=== PATIENT | female | born 1990 | race Caucasian/White ===

== ENCOUNTER 2016-11-27 09:00 | Emergency (ER) | payer MEDICAID, OTHER ==
[~2016-11-27] VITALS: Ht 167.6 cm; Wt 96.0 kg
[~2016-11-27 09:00] MED LIST: NO MEDS
[2016-11-27 09:02] VITALS: Ht 167.6 cm; Wt 96.0 kg
[2016-11-27] MEDS ORDERED: LORA10TA3 PO (09:41)
[2016-11-27] MEDS ORDERED: ACET500C5 PO (09:41)
--- NOTE | 2016-11-27 09:47 | ERD ---
ER Documentation Chief Complaint Date/Time DATE: 11/27/16 TIME: 09:46 Chief Complaint pt bib self with c/o cough and runny nose since yesterday HPI 26-year-old female A1 currently approximately 7 weeks presents with cough, runny nose, congestion and left-sided ear fullness beginning yesterday. Patient reports clear rhinorrhea, dry cough. She denies apnea, cyanosis, vomiting, diarrhea. She denies pelvic pain, abdominal pain, vaginal bleeding. ROS All systems reviewed and are negative except as per history of present illness. Medications Home Meds Active Scripts Loratadine* (Loratadine*) 10 Mg Tablet, 10 MG PO DAILY, #10 TAB Prov:TORRI COLON PA-C 11/27/16 Acetaminophen* (Tylophen*) 500 Mg Capsule, 1 CAP PO Q6H Y for PAIN AND OR ELEVATED TEMP, #20 CAP Prov:TORRI COLON PA-C 11/27/16 Reported Medications [No Meds] No Conflict Check 06/09/10 [None] No Conflict Check 06/07/10 Allergies Allergies: Coded Allergies: No Known Allergies (Verified Allergy, Mild, 06/09/10) Uncoded Allergies: SEAFOOD (Allergy, Intermediate, RASH AROUND MOUTH, 04/03/11) PMhx/Soc History of Surgery: No Anesthesia Reaction: No Hx Neurological Disorder: No Hx Respiratory Disorders: No Hx Cardiac Disorders: No Hx Psychiatric Problems: No Hx Miscellaneous Medical Probl: No Hx Alcohol Use: No Hx Substance Use: No Hx Tobacco Use: No Physical Exam Vitals Vital Signs Date Time Temp Pulse Resp B/P Pulse Ox O2 Delivery O2 Flow Rate FiO2 11/27/16 09:02 98.5 121 16 125/72 99 Physical Exam General: Well-developed, well-nourished. The patient appears in no acute distress. HEENT: Head is normocephalic, atraumatic. No scleral icterus. Left TM is boggy , non-erythematous, right ear is normal pupils are equal, round, and reactive. Oral mucous membranes are moist. No pharyngeal erythema. Neck: Supple. Nontender. Lungs: Clear to auscultation. Normal air movement. Heart: Regular rate and rhythm. S1 and S2 are normal. No murmurs, gallops, or rubs. Abdomen: Soft, nontender, nondistended. Bowel sounds are normoactive. Extremities: No clubbing or cyanosis. Normal pulses. Moving extremities x 4. No weakness. Neurologic: Alert and oriented 3. No focal deficits. Skin: Normal turgor. No rash or lesions. Procedures/MDM The patient is a 26-year-old female who comes in with an acute upper respiratory infection, presumed viral. The patient has a differential diagnosis of a viral upper respiratory infection, bacterial upper respiratory infection, bronchitis, pneumonia, pharyngitis, laryngitis, epiglottitis, croup, pneumonia. Patient has a normal pulmonary examination, clear breath sounds, normal pulse oximetry, with no corrective measures needed at this time. Fluids, rest, antipyretics were encouraged. Patient is currently approximately 7 weeks , she has normal vital signs, afebrile, nontoxic appearing. I suspect that this is likely viral, patient's symptoms do not warrant any antibiotics. She has OB follow-up next week. Departure Diagnosis: Primary Impression: Cough Condition: Good Patient Instructions: Uri, Viral, No Abx (Adult) TORRI COLON PA-C Nov 27, 2016 09:46
== END 2016-11-27 10:39 | disposition home or self-care (01) ==
LOC: FTE 09:00
DX: O99.89 Other specified diseases and conditions complicating pregnancy, childbirth and the puerperium (principal); R05 Cough; Z3A.01 Less than 8 weeks gestation of pregnancy
CPT/HCPCS: 99283

== ENCOUNTER 2017-01-11 12:18 | Emergency (ER) | payer OTHER ==
[~2017-01-11] VITALS: Ht 165.1 cm; Wt 97.5 kg
[~2017-01-11 12:18] MED LIST changes: +ACET500C5 PO; +LORA10TA3 PO
[2017-01-11 12:54] VITALS: Ht 165.1 cm; Wt 97.5 kg
[2017-01-11] MEDS ORDERED: SOD CHLORIDE 0.9% 1,000 ML IV STA (13:16)
[2017-01-11 13:55] LABS: BASOPHILS % 0.2 % (0.0-2.0); EOSINOPHILS # 0.3 10^3/ul (0.0-0.5); EOSINOPHILS % 3.4 % (0.0-7.0); HEMOGLOBIN 11.5 g/dl (12.0-16.0); LYMPHOCYTES % 11.8 % (15.0-51.0); MEAN CORPUSCULAR HEMOGLOBIN 31.1 pg (29.0-33.0); MEAN CORPUSCULAR HGB CONC 33.8 g/dl (32.0-37.0); MEAN CORPUSCULAR VOLUME 91.9 fl (82.0-101.0); MONOCYTE # 0.6 10^3/ul (0.3-0.9); MONOCYTES % 7.2 % (0.0-11.0); NEUTROPHIL # 6.3 10^3/ul (1.6-7.5); NEUTROPHILS % 76.9 % (39.0-77.0); PLATELET COUNT 315 10^3/UL (140-415); RED CELL DISTRIBUTION WIDTH 13.5 % (11.5-14.5); WHITE BLOOD COUNT 8.2 10^3/ul (4.8-10.8)
[2017-01-11 14:03] LABS: ADD UMIC YES; UR ASCORBIC ACID 20 mg/dL (NEGATIVE); UR BACTERIA FEW /HPF (NONE SEEN); UR BILIRUBIN (Dip) NEGATIVE (NEGATIVE); UR BLOOD (Dip) NEGATIVE (NEGATIVE); UR CLARITY SLIGHTLY CLOUDY (CLEAR); UR COLOR YELLOW (YELLOW); UR GLUCOSE (Dip) NEGATIVE (NEGATIVE); UR KETONES (Dip) NEGATIVE (NEGATIVE); UR LEUKOCYTE ESTERASE (Dip) 3+ Leu/ul (NEGATIVE); UR NITRITE (Dip) NEGATIVE (NEGATIVE); UR RBC 1 /HPF (0-5); UR SPECIFIC GRAVITY (Dip) 1.017 (1.003-1.030); UR SQUAMOUS EPITHELIAL CELL FEW /HPF (FEW); UR TOTAL PROTEIN (Dip) NEGATIVE (NEGATIVE); UR UROBILINOGEN (Dip) NEGATIVE (NEGATIVE)
[2017-01-11 14:15] LABS: ALBUMIN 3.9 g/dl (3.3-4.9); ALBUMIN/GLOBULIN RATIO 1.14; BILIRUBIN,INDIRECT 0.1 mg/dl (0-1.1); BILIRUBIN,TOTAL 0.1 mg/dl (0.2-1.3); CALCIUM 9.4 mg/dl (8.4-10.2); CREATININE 0.63 mg/dl (0.44-1.00); POTASSIUM 4.3 mmol/L (3.5-5.1); TOTAL PROTEIN 7.3 g/dl (6.1-8.1)
[2017-01-11] MEDS ORDERED: NITR-58 PO (14:32)
[2017-01-11] MEDS ORDERED: ONDA4TAB14 PO (14:32)
[2017-01-11] MEDS ORDERED: CEPH-443 PO (14:49)
--- NOTE | 2017-01-11 15:09 | ERD ---
ER Documentation Chief Complaint Date/Time DATE: 01/11/17 TIME: 15:01 Chief Complaint DIZZINESS STARTING THIS MORNING. VOMITED X 2. 13 WKS HPI 26-year-old female complaining of dizziness that started this morning. Patient states she is 13 weeks denies any abdominal pain. She states she has been vomiting frequently. She states that she has not been drinking of water and has been drinking a lot of coffee and eating a lot of sugar. States that the room feels like it spinning occasionally. Denies any headaches. Denies vomiting. Has mild nasal congestion. Denies fever. ROS All systems reviewed and are negative except as per history of present illness. Medications Home Meds Active Scripts Cephalexin* (Keflex*) 500 Mg Capsule, 500 MG PO QID for 7 Days, CAP Prov:DONNIE COLE PA-C 01/11/17 Ondansetron (Ondansetron Odt) 4 Mg Tab.rapdis, 4 MG PO Q6H Y for NAUSEA AND/OR VOMITING, #10 TAB Prov:DONNIE COLE PA-C 01/11/17 Nitrofurantoin Monohyd Macrocr* (Macrobid*) 100 Mg Capsr, 100 MG PO BID for 14 Days, CAP Prov:DONNIE COLE PA-C 01/11/17 Loratadine* (Loratadine*) 10 Mg Tablet, 10 MG PO DAILY, #10 TAB Prov:TORRI COLON PA-C 11/27/16 Acetaminophen* (Tylophen*) 500 Mg Capsule, 1 CAP PO Q6H Y for PAIN AND OR ELEVATED TEMP, #20 CAP Prov:TORRI COLON PA-C 11/27/16 Reported Medications [No Meds] No Conflict Check 06/09/10 [None] No Conflict Check 06/07/10 Allergies Allergies: Coded Allergies: No Known Allergies (Verified Allergy, Mild, 06/09/10) Uncoded Allergies: SEAFOOD (Allergy, Intermediate, RASH AROUND MOUTH, 04/03/11) PMhx/Soc History of Surgery: No Anesthesia Reaction: No Hx Neurological Disorder: No Hx Respiratory Disorders: No Hx Cardiac Disorders: No Hx Psychiatric Problems: No Hx Miscellaneous Medical Probl: No Hx Alcohol Use: No Hx Substance Use: No Hx Tobacco Use: No Physical Exam Vitals Vital Signs Date Time Temp Pulse Resp B/P Pulse Ox O2 Delivery O2 Flow Rate FiO2 01/11/17 12:54 96.8 88 16 129/73 100 Physical Exam GENERAL: The patient is well-appearing, well-nourished, in no acute distress HEENT: Atraumatic. Conjunctivae are pink. Pupils equal, round, and reactive to light. There is no scleral icterus. Tympanic membranes clear bilaterally. Oropharynx clear. NECK: C-spine is soft and supple. There is no meningismus. There is no cervical lymphadenopathy. CHEST: Clear to auscultation bilaterally. There are no rales, wheezes or rhonchi. HEART: Regular rate and rhythm. No murmurs, clicks, rubs or gallops. No S3 or S4. EXTREMITIES: Equal pulses bilaterally. There is no peripheral clubbing, cyanosis or edema. No focal swelling or erythema. Full range of motion. Grossly neurovascularly intact. NEUROLOGIC: Alert and oriented. Cranial nerves II through XII intact. Motor strength in all 4 extremities with 5 out of 5 strength. Sensation grossly intact. Normal speech and gait. SKIN: There is no apparent rash or petechiae. The skin is warm and dry. Result Diagram: 01/11/17 1340 01/11/17 1340 Results 24 hrs Laboratory Tests Test 01/11/17 13:35 01/11/17 13:40 Urine Color YELLOW Urine Clarity SLIGHTLY CLOUDY Urine pH 6.0 Urine Specific [place] 1.017 Urine Ketones NEGATIVEmg/dL Urine Nitrite NEGATIVEmg/dL Urine Bilirubin NEGATIVEmg/dL Urine Urobilinogen NEGATIVEmg/dL Urine Leukocyte Esterase 3+Lev/ul Urine Microscopic RBC 1/HPF Urine Microscopic WBC 2/HPF Urine Squamous Epithelial Cells FEW/HPF Urine Bacteria FEW/HPF Urine Hemoglobin NEGATIVEmg/dL Urine Glucose NEGATIVEmg/dL Urine Total Protein NEGATIVEmg/dl White Blood Count 8.210^3/ul Red Blood Count 3.7010^6/ul Hemoglobin 11.5g/dl Hematocrit 34.0% Mean Corpuscular Volume 91.9fl Mean Corpuscular Hemoglobin 31.1pg Mean Corpuscular Hemoglobin Concent 33.8g/dl Red Cell Distribution Width 13.5% Platelet Count 43321^3/UL Mean Platelet Volume 9.0fl Neutrophils % 76.9% Lymphocytes % 11.8% Monocytes % 7.2% Eosinophils % 3.4% Basophils % 0.2% Nucleated Red Blood Cells % 0.0/100WBC Neutrophils # 6.310^3/ul Lymphocytes # 1.010^3/ul Monocytes # 0.610^3/ul Eosinophils # 0.310^3/ul Basophils # 0.010^3/ul Nucleated Red Blood Cells # 0.010^3/ul Sodium Level 137mmol/L Potassium Level 4.3mmol/L Chloride Level 106mmol/L Carbon Dioxide Level 23mmol/L Anion Gap 12 Blood Urea Nitrogen 7mg/dl Creatinine 0.63mg/dl Glucose Level 100mg/dl Calcium Level 9.4mg/dl Total Bilirubin 0.1mg/dl Direct Bilirubin 0.00mg/dl Indirect Bilirubin 0.1mg/dl Aspartate Amino Transf (AST/SGOT) 16IU/L Alanine Aminotransferase (ALT/SGPT) 31IU/L Alkaline Phosphatase 71IU/L Total Protein 7.3g/dl Albumin 3.9g/dl Globulin 3.40g/dl Albumin/Globulin Ratio 1.14 Lipase 63U/L Current Medications Medications (Trade) Dose Ordered Sig/Susan Route PRN Reason Start Time Stop Time Status Last Admin Dose Admin Sodium Chloride (NS) 1,000 ml @ 1,000 mls/hr Q1H STAT IV 01/11/17 13:16 01/11/17 14:15 DC 01/11/17 13:50 Procedures/MDM ER Course: IV saline given in ED. Upon reevaluation, patient's symptoms improved MDM: 26 yr old female complaining of dizziness. I have low suspicion for dehydration. Patient's blood work is within normal limits. Patient's urine does appear to have infection I will treat with antibiotics. Patient's urine sent for culture. Patient is not having pelvic pains, I have low suspicion for emergency at this time. Patient's exam and vital signs are stable. Patient will be discharged with antibiotics and antinausea medication. Patient is told if symptoms change or worsen to return to the emergency room. Patient will follow up with PMD within 1 to days for close evaluation. All questions answered at discharge. Departure Diagnosis: Primary Impression: UTI (urinary tract infection) Additional Impression: Dizziness Condition: Stable Patient Instructions: Understanding Urinary Tract Infections (UTIs), Dizziness , Unk Cause Additional Instructions: FOLLOW UP WITH YOUR PRIMARY CARE PHYSICIAN TOMORROW.Return to this facility if you are not improving as expected. DONNIE COLE PA-C Jan 11, 2017 15:09
== END 2017-01-11 16:14 | disposition home or self-care (01) ==
LOC: FTE 12:18
DX: O23.41 Unspecified infection of urinary tract in pregnancy, first trimester (principal); R42 Dizziness and giddiness; Z3A.13 13 weeks gestation of pregnancy
CPT/HCPCS: 36415; 80053; 81001; 83690; 85025; 87086; J7030; Z7502

== ENCOUNTER 2017-06-13 14:39 | Outpatient (CLI) | END 2017-06-13 16:30 | disposition home or self-care (01) ==

== ENCOUNTER 2017-06-22 18:58 | Outpatient (CLI) | END 2017-06-22 21:21 | disposition home or self-care (01) ==

== ENCOUNTER 2017-06-24 14:22 | Outpatient (CLI) | END 2017-06-24 15:35 | disposition home or self-care (01) ==

== ENCOUNTER 2017-06-28 19:32 | Outpatient (CLI) | END 2017-06-28 23:45 | disposition home or self-care (01) ==

== ENCOUNTER 2017-06-29 14:04 | Inpatient (IN) | END 2017-07-02 15:15 | disposition home or self-care (01) | DRG 765 ==

== ENCOUNTER 2017-07-29 09:07 | Emergency (ER) | END 2017-07-29 10:15 | disposition home or self-care (01) ==